=== PATIENT | male | born 1960 | race Caucasian/White ===

== ENCOUNTER 2019-01-21 20:46 | Emergency (ER) | payer MEDICARE, SELFPAY ==
[2019-01-21 20:48] VITALS: BP 153/79; PULSE 57; RESP 16; TEMP 36.7; O2SAT 100; BMI 17.2
[2019-01-21] MEDS: Fluorescein 1 MG STRIP 1 STRIP RIGHT EYE (21:08)
[2019-01-21] MEDS: Tetracaine 0.5% Ophthalmic Bottle 1 DRP RIGHT EYE (21:08)
--- NOTE | 2019-01-21 21:59 | ED.VIS.GEN ---
History of Present Illness Chief Complaint: Eye Problem Informant: Patient Onset: Days Context: Gradual Onset Timing: Intermittent Current Severity: Moderate Maximum Severity: Moderate Narrative: The patient presents to the emergency department foreign body in his right eye. Patient states he was doing some grinding a few weeks ago. He felt like he got metal in his eye and it has been there since. He actually went to [facility] earlier and he states that they did not attempt to get it out. They did not give him follow-up. Presented here in hopes that someone can get it out. He denies any visual change. His tetanus is up-to-date. Prior similar symptoms: No Recent Illness/Hospitalization: No Past Medical History - Allergies and Home Meds Allergies/Adverse Reactions: Allergies No Known Allergies Allergy (Verified 01/21/19 20:47) Primary Care Physician: Jose Hobson MD [STAFF PHYSICIAN] - As soon as possible (The office opens at 8 AM. Call first thing in the morning.) Prior records reviewed: Yes Past Medical History: None Smoking Status: Current every day smoker Review of Systems General: Denies: Chills, Fever, Sweats Eyes: Denies: Visual changes - bilaterally, Diplopia ENT: Denies: Rhinorrhea, Sore throat Cardiovascular: Denies: Chest pain, Palpitations Respiratory: Denies: Dyspnea, Cough, Dyspnea on exertion Gastrointestinal: Denies: Abdominal pain, Nausea, Vomiting, Diarrhea, Melena, Hematochezia Genitourinary: Denies: Dysuria, Hematuria, Frequency Musculoskeletal: Denies: Back pain, Extremity Pain Skin: Denies: Rash, Wounds Neurological: Denies: Headache, Weakness, Numbness Physical Exam Vital Signs/Narrative: Vital Signs Temp Pulse Resp BP Pulse Ox 01/21/19 20:48 98.1 F 57 L 16 153/79 H 100 Inital Vital Signs reviewed: Yes General: Well nourished, Well developed, No Acute Distress Head: Normocephalic, Atraumatic Eyes: Perrl, EOMI ENT: Moist mucous membranes, No rhinorrhea Neck: Supple, Nontender Cardiovascular: Regular rate, Regular rhythm, No murmurs Respiratory: No distress, CTA bilaterally, Chest nontender Abdomen: Soft, Nontender, Nondistended, Normal bowel sounds Back: Nontender, Normal Inspection Extremities: Nontender, No edema Skin: Normal color, No rash Neurological: Alert, Oriented x3, Cranial nerves II-XII grossly intact, Normal Strength, Normal Sensation Psychological: Normal affect, Normal Mood Diagnostic/Tx/Re-eval - Medical Decision Making Tetracaine and fluorescein were instilled into the right eye. Slit-lamp examination was performed. The patient has a very small, punctate foreign body at the 7 o'clock position overlying the iris. There is no evidence of globe injury or Lety sign. There is no rust ring. There is epithelium already over the foreign body. Foreign justa is minute. I was going to attempt to remove it, but we did not have the appropriate eye joseph equipment. As it has been in for this long, I did discuss the patient with ophthalmology and he will be seen in the office tomorrow for an attempt at removal. He is comfortable with this plan of care. Impression 1. Foreign body in the right eye ED Disposition - Plan for ED Patient: Instructions: CORNEAL FOREIGN BODY, Removed Referrals: Jose Hobson MD [STAFF PHYSICIAN] - As soon as possible (The office opens at 8 AM. Call first thing in the morning.)
[2019-01-21 22:17] VITALS: BP 138/79; PULSE 66; RESP 16; O2SAT 98
== END 2019-01-21 22:18 | disposition home or self-care (01) ==
LOC: ED 21:08
PROVIDERS: Emergency Provider Emergency Medicine
DX: T15.91XA Foreign body on external eye, part unspecified, right eye, initial encounter (principal); X58.XXXA Exposure to other specified factors, initial encounter; Y92.9 Unspecified place or not applicable; Y99.9 Unspecified external cause status; F17.200 Nicotine dependence, unspecified, uncomplicated
CPT/HCPCS: 99282

== ENCOUNTER → 2020-05-25 13:31 | Outpatient (CLI) | payer MEDICARE, SELFPAY ==
[2020-05-25 12:34] VITALS: BMI 17.4
[2020-05-25 14:05] LABS: Absolute Lymphocyte Count 2.03 X10^3/uL (0.83-4.51); Absolute Neutrophil Count 5.3 X10^3/uL (2.0-7.7); Basophil# 0.05 X10^3/uL; Basophil% 0.6 % (0-1); Eosinophil# 0.11 X10^3/uL; Eosinophils% 1.4 % (0-5); Hematocrit 42.5 % (40-54); Lymphocyte # 2.03 X10^3/ul (4.0); Lymphocyte % 25.5 % (19-41); Mean Corp Hgb Conc 32.9 g/dL (32-36); Mean Platelet Vol. 8.9 fl (6.2-12.0); Monocyte# 0.44 X10^3/uL; Monocyte% 5.5 % (0-10); NRBC Flagged by Analyzer 0 % (0-5); Neutrophil # 5.29 X10^3/uL (2.7-7.7); Neutrophil % 66.6 % (47-70); Platelet Count 292 K/mm3 (150-450); RBC Distribution Width CV 13.2 % (11.6-14.6); RBC Distribution Width SD 45.4 fl (35.1-43.9); Red Blood Count 4.52 M/mm3 (4.6-6.2)
== END ==
PROVIDERS: Referring Provider Internal Medicine Critical Care Medicine; Visit Provider Internal Medicine Critical Care Medicine
DX: R91.8 Other nonspecific abnormal finding of lung field (principal); F17.210 Nicotine dependence, cigarettes, uncomplicated
CPT/HCPCS: 36415; 85025

== ENCOUNTER → 2020-06-01 12:07 | Outpatient (CLI) | payer MEDICARE, SELFPAY ==
[2020-05-25 12:34] VITALS: BMI 17.4
[2020-06-01 12:15] VITALS: PULSE 74; PULSE 79; PULSE 86; PULSE 88; PULSE 90; PULSE 91; O2SAT 95; O2SAT 96; O2SAT 97; O2SAT 98
--- NOTE | 2020-06-02 07:38 | WT_ITS ---
PSN 6 Minute Walk Test - 6 Minute Walk Test 6 Minute Walk Test: 6 Minute Walk Test PSN:6-Minute Walk Test Start: 06/01/20 12:32 Freq: Status: Active Protocol: RESP.6MINW Document 06/01/20 12:15 [facility] (Rec: 06/01/20 12:36 [facility] [id number]) 6 Minute Walk Test Date Performed 06/01/20 Time Performed 12:15 Height 5 ft 8 in Weight: 112 lb Weight in Pounds 112.[address]: Assistive device used: None Pre-test Oxygen Delivery Method Room Air Pulse Ox (%) 97 Pulse Rate (60-100 beats/min) 74 Dyspnea Dominic Scale (0-10) 0 Exertion Dominic Scale (6-20) 6 1st minute Oxygen Delivery Method Room Air Pulse Ox (%) 98 Pulse Rate (60-100 beats/min) 88 2nd minute Oxygen Delivery Method Room Air Pulse Ox (%) 96 Pulse Rate (60-100 beats/min) 88 3rd minute Oxygen Delivery Method Room Air Pulse Ox (%) 96 Pulse Rate (60-100 beats/min) 86 4th minute Oxygen Delivery Method Room Air Pulse Ox (%) 96 Pulse Rate (60-100 beats/min) 90 5th minute Oxygen Delivery Method Non-Rebreather Pulse Ox (%) 95 Pulse Rate (60-100 beats/min) 90 6th minute Oxygen Delivery Method Room Air Pulse Ox (%) 96 Pulse Rate (60-100 beats/min) 91 Dyspnea Dominic Scale (0-10) 1 Exertion Dominic Scale (6-20) 8 Post-test Oxygen Delivery Method Room Air Pulse Ox (%) 97 Pulse Rate (60-100 beats/min) 79 Full Laps Walked 19 Partial Lap, Number of Tiles Walked 45 Total Distance Walked (ft) 1166 - Interpretation Interpretation: The patient ambulated 1166 feet over the course of 6 minutes beginning on room air without assistive devices or breaks. Pretesting oxygen saturation was noted to be 97% on room air. With ambulation, the melissa oxygen saturation was 95%. There was no significant exertional oxygen desaturation. - Recommendations Recommendations: There is no indication for the use of supplemental oxygen at this time.
== END ==
LOC: PSN 12:08
PROVIDERS: Referring Provider Family Medicine; Visit Provider Family Medicine
DX: R91.8 Other nonspecific abnormal finding of lung field (principal)
CPT/HCPCS: 94618

== ENCOUNTER → 2020-06-07 08:29 | Outpatient (CLI) | payer MEDICARE, SELFPAY ==
[2020-05-25 12:34] VITALS: BMI 17.4
[2020-06-07] VITALS (13 sets, daily range): BP systolic 110–140; BP diastolic 73–100; PULSE 56–76; RESP 12–28; TEMP 36.5; O2SAT 94–100; BMI 17.5
--- NOTE | 2020-06-07 | IMM_PTH ---
PATIENT: MEL KATHLEEN LOC: CT U#:[id number] AGE/SX: 64/M ROOM: RE06/07/[address]: Dr. Bipin Cardenas DO : 1960 BED: DIS: SPEC #: [id number] RECD: 06/08/20 10:10 STATUS: IBIS REQ #: [id number] ANGELINA: 06/07/20 00:[address]: Bipin Cardenas DEPT: IMMUNOHISTOCHEMISTRY RECD BY: Daisy Marin ENTERED: 06/08/20 10:12 SP TYPE: IMMUNO OTHR DR: No Primary Care Phys Tissues: Left upper lobe of lung, NOS Procedures: RCC (add) NAPSIN A (add) CK20 (add) CK5-6 (add) CK7 (add) CK8 (add) HEP PAR (add) TTF1 (add) Pankeratin (initial) P40 (add) PSAP (add) PHYSICIAN & INSTITUTION [place] [id number] SPECIMEN INFORMATION: Tissue Source: ROSEMARY mass Clinical Info: ROSEMARY mass Specimen Number: [id number] CPT code: 47243, 75025 x10 METHODOLOGY: Deparaffinized sections of prefer/formalin-fixed tissue or PAP/DQ stained slides are incubated with monoclonal/polyclonal antibodies/oligonucleotide probes. Localization is made via biotin free immunoperoxidase method. Appropriate controls are performed and reacted as expected. Results on target cell population are indicated in the following table: RESULTS: ANTIBODY / CLONE RESULT AE1-3 (AE1/AE3/PCK26) positive, focal CK7 (OV-TL12/30) positive, focal CK8 (27qkiwQ63) positive CK20 (KS20.8) negative TTF-1 (8G7G3/1) negative Napsin A (Rabbit Polyclonal) negative HepPar (OCh1E5) positive, focal RCC (PN-15) negative PSAP (PASE/4LJ) negative CK5-6 (D5 & 1684) negative P40 (BC28) positive, focal These tests were developed and their performance characteristics determined by [facility]. They may not have been cleared or approved by the U.S. Food and Drug Administration. The FDA has determined that such clearance or approval is not necessary. The above immunohistochemical/dualISH markers are ordered and reviewed by the Pathologist. INTERPRETATION: ROSEMARY mass, CT-guided core biopsy: Poorly differentiated non-small cell carcinoma, favor adenocarcinoma. JENNIE:keon 06/09/2020
--- NOTE | 2020-06-07 08:30 | CT_ITS ---
PROCEDURE: CT GUIDED CORE NEEDLE BIOPSY OF A left apical LUNG LESION INDICATION: Male, 59 years old. LEFT LUNG BIOPSY PHYSICIAN: Dr. JUAN ANTONIO Osman CONSENT: Written informed consent was obtained having explained the risks, benefits and alternatives in detail with the patient who accepted the risks and agreed to proceed. Laboratory review and clinical assessment was performed. CONSCIOUS SEDATION PROTOCOL: The Drugs used were: 1 mg Versed, IV., and 25 mcg Fentanyl, IV. The sedation time was: 19 minutes. Conscious sedation was started at 10:01 AM and terminated at 10:20 AM. The conscious sedation protocol was independently monitored. RADIATION DOSAGE (If Supplied By Facility): CTDIvol = ( 14.3 ) mGy, DLP = ( 218.64 ) mGycm Individualized dose optimization techniques were used for this CT. TECHNIQUE: The patient was placed in the supine position. A noncontrast CT was performed to localize the lesion in the left lung apex . The skin surface was prepped and draped in a sterile fashion. 1% lidocaine was used for local anesthesia. Using CT guidance, a 20-gauge coaxial biopsy device was advanced to the periphery of the lesion. A total of 4 core specimens were obtained. The specimens were placed in a formalin solution. A Bio sentry tract sealant system was utilized. A post procedure CT demonstrated no adverse sequelae or pneumothorax. The patient tolerated the procedure well without adverse event. A negative biopsy does not exclude malignancy. Further imaging or clinical followup based on patient condition and degree of clinical suspicion for malignancy. Suggest rebiopsy, if biopsy results do not match with clinical scenario. CT/Biopsy/Inj or Needle Placement IMPRESSION: 1. CT directed core needle biopsy of the mass in the left lung apex using CT image guidance with image documentation as described. Pathology results are pending. 2. Conscious Sedation protocol utilized with independent monitoring. Electronically Signed: Jaziel Kaur MD at 10:43 EST , Service support ,
[2020-06-07 08:58] LABS: International Normalized Ratio 1.1; Prothrombin Time (Protime)PT. 13.4 SECONDS (11.7-14.9)
--- NOTE | 2020-06-07 10:00 | ASPIGT_PTH ---
PATIENT: MEL KATHLEEN LOC: CT U#:[id number] AGE/SX: 64/M ROOM: RE06/07/[address]: Dr. Bipin Cardenas DO : 1960 BED: DIS: SPEC #: [id number] RECD: 06/07/20 10:30 STATUS: IBIS GENNARO #: [id number] ANGELINA: 06/07/20 10:[address]: Bipin Cardenas DEPT: SURGICAL PATHOLOGY RECD BY: Colleen Figueroa ENTERED: 06/07/20 12:47 SP TYPE: ASP RAD OTHR DR: No Primary Care Phys Tissues: Lung, NOS Procedures: FNA Specimen Adequacy Special Stain Group II Surgery Specimen Level IV Imprint (control) HEADER OPERATION: CT-guided left lung biopsy PRE-OP DIAGNOSIS: ROSEMARY mass TISSUE SUBMITTED: ROSEMARY mass 20-gauge core MICROSCOPIC DIAGNOSIS ROSEMARY mass, CT-guided core biopsy: Poorly differentiated non-small cell carcinoma, favor adenocarcinoma. See comment. SJ:keon 06/08/2020 COMMENT The specimen is evaluated at the time of biopsy by Dr. Samaniego. Immediate Evaluation = Malignant cells present derived from non-small cell carcinoma. Immunohistochemistry ([id number]) supports the above diagnosis. Molecular studies on the tumor can be performed if clinically indicated. Please notify the laboratory if they are needed. Case has been reviewed in consultation with Dr. Taylor who concurs with the above diagnosis. IDC:AM MICROSCOPIC DESCRIPTION Slides are reviewed. GROSS DESCRIPTION Received in fixative is one container labeled with the patient's name and designated ROSEMARY mass, CT-guided core biopsy. The specimen consists of multiple irregular fragments of blackman soft tissue that in aggregate measure 1 x 0.1 x 0.1 cm. The specimen is totally submitted in one cassette. Two touch imprints are prepared at the time of core biopsy. / SJ:keon 06/07/20 TC:[address] [facility]: [id number], [id number] ADDENDUM ADDENDUM ADDENDUM ADDENDUM ADDENDUM ADDENDUM 07/11/2020 10:42 ADDENDUM 07/19/2020 10:13 ADDENDUM 07/11/2020 10:42 ADDENDUM 07/11/2020 10:42 ADDENDUM 07/11/2020 10:42 ADDENDUM 07/11/2020 10:42 PD-L1 (KEYTRUDA) IMMUNOHISTOCHEMICAL ANALYSIS FROM [facility] RESULTS: Tumor proportion score: <1% / Negative Please see complete report in e-chart or EMR ONKOSIT NEXT GENERATION SEQUENCING GENE FUSION PANEL FROM [facility] INTERPRETATION: NEGATIVE: No pathogenic gene fusions detected involving ALK, OSCAR, BRAF, CCND1, EGFR, FGFR1, FGFR2, FGFR3, MET, NRG1, NTRK1, NTRK2, NTRK3, PPARG, RAF1, RET, ROS1 or THADA. RESULTS: Tumor Cellularity: >10% Please see complete report in e-chart or EMR
[2020-06-07] MEDS: Midazolam 2 MG/2 ML Syringe IV (10:01)
[2020-06-07] MEDS: fentaNYL 100 MCG/2 ML Ampul IV (10:03)
--- NOTE | 2020-06-07 10:15 | RAD_ITS ---
STUDY: X-RAY CHEST REASON FOR EXAM: Male, 59 years old. IMMEDIATE POST LUNG BX, LEFT SIDE TECHNIQUE: Immediate post left lung biopsy radiograph. COMPARISON: None. FINDINGS: There is evidence of a 10% left pneumothorax. The patient is asymptomatic. RAD/Chest Insp/Exp 2 View IMPRESSION: 10% left pneumothorax on the immediate post left lung biopsy radiographs. Electronically Signed: Jaziel Kaur MD at 11:09 EST , Service support ,
--- NOTE | 2020-06-07 12:15 | RAD_ITS ---
STUDY: X-RAY CHEST REASON FOR EXAM: Male, 59 years old. 2 HOURS POST LUNG BX TECHNIQUE: AP inspiration and expiration views. COMPARISON: Comparison is made with prior study. FINDINGS: Since prior study, there has been an increase in the left pneumothorax. The patient is asymptomatic. The patient''s oxygenation is at 98% on room air. The patient decided to go home and return if symptoms worsen. . RAD/Chest Insp/Exp 2 View IMPRESSION: Persistent left pneumothorax. The patient is asymptomatic. Oxygenation is at 98% on room air. Electronically Signed: Jaziel Kaur MD at 13:03 EST , Service support ,
== END ==
LOC: CT 08:30
PROVIDERS: Referring Provider Internal Medicine Critical Care Medicine; Visit Provider Internal Medicine Critical Care Medicine
DX: Z01.812 Encounter for preprocedural laboratory examination (principal); C34.12 Malignant neoplasm of upper lobe, left bronchus or lung; R06.02 Shortness of breath; R91.8 Other nonspecific abnormal finding of lung field; F17.210 Nicotine dependence, cigarettes, uncomplicated; Z79.899 Other long term (current) drug therapy
CPT/HCPCS: 32408; 36415; 71046; 77012; 85610; 85730; 88172; 88305; 88313; 88341; 88342; 99155; 99156; J7040; A4216; C2613

== ENCOUNTER → 2020-06-20 15:29 | Outpatient (CLI) | payer MEDICARE, SELFPAY ==
[2020-06-13 10:24] VITALS: BMI 17.5
--- NOTE | 2020-06-20 17:28 | PET_ITS ---
EXAMINATION: FDG PET/CT INDICATIONS: A 59-year-old male with reported history of carcinoma of the lung presenting for initial staging examination. COMPARISON EXAMINATION: CT of the chest, CT-guided left lung biopsy report dated 06/07/20 INDEX LESION SIZE SUV INTERPRETATION Left upper anterior lung-left upper lobe 36.4 x 33.9-mm (frame 199) 18.2 Fulfills quantitative criteria for viable neoplasm Proximal sternum 4.4 Fulfills quantitative criteria for viable neoplasm TECHNIQUE: Following the intravenous administration of 15.31 mCi of F-18 deoxyglucose via the left antecubital fossa, multiplanar image acquisitions of the neck, chest, abdomen and pelvis to level of mid thigh, obtained at one hour post radiopharmaceutical administration contemporaneously interpreted with the current CT of the neck, chest, abdomen and pelvis to level of mid thigh, dated 06/20/[address] of the chest, CT-guided left lung biopsy report dated 06/07/20 reveal: SERUM GLUCOSE LEVEL: 84 mg/dl. HEIGHT: 67 inches. WEIGHT: 112 lbs. FINDINGS: 1. There is an increase in FDG concentration observed in the left upper anterior lung-left upper lobe generating a calculated maximal standard uptake value of 18.2. The maximal axial diameter of the corresponding parenchymal density-mass on review of CT of the chest dated 06/20/20 is 36.4-mm (transverse) x 33.9-mm (AP). 2. An increase in fluorine labeled glucose uptake is observed in the proximal sternum caudal to the sternomanubrial synchondrosis. The calculated maximal standard uptake value is 4.4. Corresponding mixed sclerotic-lytic change is noted in the analogous location on review of CT of the chest dated 06/20/20. 3. Normal physiologic distribution of the radiopharmaceutical is apparent in the hepatic (2.3) and splenic parenchyma, both renal units, bladder and visualized intestinal tract. The visualized portion of the cerebral cortex demonstrate symmetric and preserved glucose metabolism. Prominent tracer concentration is observed in the left ventricular myocardium commensurate with the [place]. Pertinent CT findings are as follows: CHEST: There is atherosclerotic calcification defined in the thoracic aorta without evidence of dilatation-aneurysm formation. Coronary arterial calcification is observed. A left hemithorax pleural effusion reveals no evidence of increased tracer uptake. Calcifications are defined in the right thoracic paravertebral soft tissue musculature without evidence of increased tracer uptake. A calcified density noted in the right mid medial lung reveals no evidence of enhanced tracer concentration. A left pneumothorax is defined. Paraseptal emphysematous change is noted in the bilateral upper-mid lung zones. ABDOMEN AND PELVIS: There is atherosclerotic calcification defined in the abdominal aorta without evidence of dilatation-aneurysm formation. Pelvic arterial calcification is observed. Bilateral subcentimeter inguinal soft tissue densities with fatty hilus are ametabolic. Dystrophic calcification is manifest within the prostate gland without evidence of increased glucose metabolism. Calcified phlebolith formation is observed in the bilateral lower hemipelvis. SKELETAL: Degenerative changes are noted in the cervical, thoracic and lumbar spine without evidence of increased radiopharmaceutical concentration. PET/PET/CT Tumor Base -Thigh Init IMPRESSION: 1. ABNORMAL EXAMINATION INDICATIVE OF MALIGNANT VIABLE NEOPLASM. 2. Increased glucose concentration observed in the left upper anterior lung-left upper lobe fulfills quantitative criteria for viable neoplasm. 3. Enhanced tracer uptake noted in the proximal sternum fulfills quantitative criteria for viable limited osseous metastatic disease. (Nighat et al, Clinical Nuclear Medicine, 29:161, 2004). Electronic Signature Ritesh Chilel D.O. Accurate Quantification of SUVs for this report are calculated using the exclusive [employer]? Technology.??Exclusive [place]. Patent [employer]uquan? Technology (U.S. Patent No. [phone]). Electronically Signed: Ritesh Chilel DO at 21:37 EST Tel , Service support ,
== END ==
LOC: ONC 15:30
PROVIDERS: PCP Family Medicine; Referring Provider Internal Medicine Critical Care Medicine; Visit Provider Internal Medicine Critical Care Medicine
DX: C34.12 Malignant neoplasm of upper lobe, left bronchus or lung (principal)
CPT/HCPCS: 78815; A9552

== ENCOUNTER → 2020-06-22 14:55 | Outpatient (CLI) | payer MEDICARE, SELFPAY ==
[2020-06-13 10:24] VITALS: BMI 17.5
--- NOTE | 2020-06-22 14:58 | MRI_ITS ---
STUDY: MRI BRAIN WITH AND WITHOUT CONTRAST REASON FOR EXAM: Male, 59 years old. Staging for NSCLC TECHNIQUE: Standardized multiplanar fat and water weighted pulse sequences were obtained. IV 10CC DOTAREM was administered for the contrast portion of the examination. COMPARISON: None. FINDINGS: There is mild cerebral atrophy with widening of the extra-axial spaces and ventricular dilatation. There are a limited number of small white matter hyperintensities, distributed throughout the deep white matter tracts of the cerebral hemispheres, consistent with mild chronic white matter ischemic changes. There is no evidence for recent intracranial ischemia or other cause of cytotoxic edema on diffusion weighted imaging (DWI). Normal T2* images of the brain without demonstrated susceptibility artifact. There is no demonstrated hemosiderin stain. Normal bilateral basal ganglia. Normal thalami. There is no extra-axial fluid accumulation. Normal flow voids within the major intracranial circulation suggesting patency by spin echo criteria. Normal venous enhancement. There is no enhancing intra-axial or extra-axial abnormality. Normal sella turcica, pituitary gland, infundibular stalk, optic chiasm and hypothalamus. Normal tectal plate and pineal gland. Normal midbrain, cipriano and medulla. Normal cerebellum. Normal basal cisterns. Normal bilateral temporal bones. Normal bilateral internal auditory canals. No demonstrated orbital abnormality, within the constraints of a routine brain study. Normal visualized paranasal sinuses. Normal calvarium and skull base. Normal visualized soft tissue structures. Normal visualized upper cervical spine. MRI/Brain W/WO Contrast IMPRESSION: Involutional changes of the brain, as described above. No MR evidence metastatic disease. Electronically Signed: Ritesh Craig MD at 16:45 EST Tel , Service support ,
--- NOTE | 2020-06-22 15:00 | RAD_ITS ---
STUDY: X-RAY - ORBITS REASON FOR EXAM: Male, 59 years old. HX METAL TO EYE; PRE MRI TECHNIQUE: 2 view(s) of the orbits were obtained. COMPARISON: None. FINDINGS: Normal bilateral orbits without a metallic orbital foreign body. Normal visualized facial bones. Normal paranasal sinuses. The soft tissue structures are unremarkable. RAD/Orbits for Foreign Body IMPRESSION: No demonstrated metallic orbital foreign body. The patient is cleared for an MRI examination. Electronically Signed: Jaziel Kaur MD at 15:33 EST , Service support ,
[2020-06-22 15:35] LABS: CREATININE FINGERSTICK 1.3 mg/dL (0.70-1.30)
== END ==
PROVIDERS: PCP Family Medicine; Referring Provider Internal Medicine Critical Care Medicine; Visit Provider Internal Medicine Critical Care Medicine
DX: C34.90 Malignant neoplasm of unspecified part of unspecified bronchus or lung (principal)
CPT/HCPCS: 70030; 70553; A9575

== ENCOUNTER → 2020-07-19 10:27 | Outpatient (CLI) | payer MEDICARE, SELFPAY ==
[2020-07-17 14:12] VITALS: BMI 17.4
[2020-07-19 10:55] LABS: Allen Test Positive; Base Excess 1 mmol/L (-2 to +2); Bicarbonate 26.2 mmol/L (22-26); Blood Gas Specimen Type ART; FI02 21; PO2 76 mmHG (75-100); SITE R Radial; SO2 95 % (95-99); Total Carbon Dioxide 28 mmol/L; pH 7.39 (7.35-7.45)
--- NOTE | 2020-07-19 14:30 | PFTCOMP_ITS ---
COMPLETE PULMONARY FUNCTION TEST INTERPRETATION Brief HPI: Patient is a 59 year old male, currently under the care of Dr. Bingham, who presents to [facility] for complete pulmonary function tests secondary to diagnosis of lung cancer. Respiratory therapist reports good effort and reproducible results. Interpretation: Forced expiration spirometry shows a mild large airways obstructive ventilatory defect with an FEV1 of 80% predicted. There is no significant bronchodilator response by strict ATS criteria. Spirograms are of good quality and plateau slowly, indicating slowly emptying areas of the lungs. The respiratory flow volume loop shows decreased expiratory flow rates at high lung volumes consistent with small airways obstruction. Lung volumes by body plethysmography show a normal total lung capacity at 5.8 L, 98% predicted. All other lung volumes are within normal limits. Diffusion capacity by carbon monoxide is normal at 73% predicted. The airway resistance is normal. No previous pulmonary function tests were available for review. An ABG was also obtained showing 7.392/43/75.8/94% indicating normal ventilation with a slightly elevated AA gradient Impression: Irreversible mild large airways obstructive ventilatory defect.
== END ==
LOC: PSN 10:28
PROVIDERS: Referring Provider Internal Medicine Medical Oncology; Visit Provider Internal Medicine Medical Oncology
DX: C34.12 Malignant neoplasm of upper lobe, left bronchus or lung (principal)
CPT/HCPCS: 36600; 82803; 94060; 94726; 94729

== ENCOUNTER → 2020-08-22 13:56 | Outpatient (CLI) | payer MEDICARE, SELFPAY ==
[2020-08-21 13:11] VITALS: BMI 17.3
[2020-08-22 10:07] VITALS: BMI 17.3
--- NOTE | 2020-08-22 13:59 | MRI_ITS ---
STUDY: MRI LEFT BRACHIAL PLEXUS WITH AND WITHOUT CONTRAST REASON FOR EXAM: Male, 59 years old. evaluate for disease invasion into chest wall -- eval plexus and vessel involvement TECHNIQUE: Standardized fat and water weighted pulse sequences were obtained in all 3 orthogonal planes, pre-and post contrast administration. IV 10ml Dotarem was administered for the contrast portion of the examination. COMPARISON: PET CT 06/20/2020. FINDINGS: No demonstrated abnormality in the course of the brachial plexus. There is no demonstrated neural enlargement, neural edema or enhancement of the brachial plexus. 4 x 3.5 x 3 cm enhancing mass in the left pulmonary apex with mild central necrosis. Fluid signal along the superomedial margin without demonstrated solid enhancing component contacts the mediastinum and left subclavian artery. Superiorly, there is mild, partial contact between the enhancing mass and the left subclavian vein, estimated less than 25% encasement. Minimal involvement of the apical pleura is suspected. There is no extension into the chest wall, ribs, or thoracic vertebral bodies. No axillary mass or adenopathy. The visualized shoulder is unremarkable. MRI/Upper Ext No Joint W/WO Cont IMPRESSION: Left apical mass consistent with malignancy, as described above. Electronically Signed: Nasrin Fowler MD at 16:32 EDT Tel , Service support ,
== END ==
LOC: MRI 13:57
PROVIDERS: Referring Provider Student in an Organized Health Care Education/Training Program; Visit Provider Student in an Organized Health Care Education/Training Program
DX: C34.92 Malignant neoplasm of unspecified part of left bronchus or lung (principal)
CPT/HCPCS: 73220; A9575

== ENCOUNTER 2020-08-30 11:55 | Day surgery (SDC) | payer MEDICARE, SELFPAY ==
[2020-08-23 13:23] VITALS: BMI 17.4
[2020-08-30] VITALS (7 sets, daily range): BP systolic 94–125; BP diastolic 64–72; PULSE 55–63; RESP 16–18; TEMP 36.3–36.8; O2SAT 99–100; BMI 17.4
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
[2020-08-30] MEDS: Lactated Ringers 1,000 ML 100 ML IV ×2 (12:15→14:21)
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
[2020-08-30] MEDS: Cefazolin 2 GM in 0.9% Normal Saline 100 ML IV (13:43)
[2020-08-30] MEDS: Bupiv/Epi 0.25% 30 ML Vial (13:55)
--- NOTE | 2020-08-30 14:13 | OP.PCM_ITS ---
Problems Associated Problem List Diagnoses (1) Non-small cell cancer of left lung: (2) Encounter for insertion of venous access port: Report of Operation Date of Procedure: 08/30/20 Pre-Operative Diagnosis: Lung cancer need for vascular access for chemotherapy Post-Operative Diagnosis: Same Surgery/Procedure Performed:: Ultrasound and fluoroscopy right chest port placement utilizing right IJ Description of Procedure: After obtaining informed consent patient was brought back to the operating room MAC anesthesia was induced and the right chest and neck were prepped in normal sterile fashion. Ultrasound was used to evaluate both IJs and the right IJ was selected. Next, using a needle, the right IJ was accessed and a guidewire was passed on into the superior vena cava under fl uoroscopy guidance. A small incision was made over the puncture site and the dilator introducer was placed over the guidewire. Next this was capped and the pocket was made for the port. 1% lidocaine with epinephrine was injected in the proposed port site. An incision was made with scalpel. Electrocautery was used to make a pocket under the skin and subcutaneous tissue. Hemostasis was obtaine d. Next, the catheter was tunneled up to the neck incision site and placed through the introducer. The peel-away introducer was removed and the position of the catheter was confirmed on fluoroscopy. Next, the catheter was trimmed and attached to the port with the locking device. Interrupted 2-0 Vicryl sutures were used to anchor the port to the chest wall and then the port was placed inside the pocket. The pocket was then flushed with saline and the port irrigated with saline. There was good blood return and the port flushed easily. Next, heparin was injected into the port. The skin was closed with subcutaneous interrupted 3-0 Vicryl sutures. A single 3-0 Vicryl sutures placed under the skin at the neck incision site. Steri-Strips were placed as well as op sites. Patient tolerated procedure well, was taken to PACU in stable condition. Chest x-ray will be obtained. Grafts/Implants Used: 8 [place] PowerPort Admit VTE Documentation VTE Mechan Device Prophylaxis: SCD's
--- NOTE | 2020-08-30 14:14 | EX.PCM.DISCH ---
Discharge Instructions Procedure Port-A-Cath Diet Discharge Diet: Light diet - advance as tolerated (Pain medication may cause nausea. You should typically eat light foods as you take your pain medication.) Activity Discharge Activity: Return to Normal Activity and May Shower (with your bandage in place in 1-2 days after surgery. ) Dressing / Incision Call your doctor if your incision/area has: Continuous Slow Oozing, Sudden Increased Bleeding, Increased Pain/ Swelling, Increased Redness and Swelling at the incision site Call your doctor if you observe: Fever of 101 or Higher Remove Dressing in: 2 days Follow Up Care Please Follow Up With: Kevin Mendez MD When: as needed. Call [phone] with any questions or concerns Test Results: Test results from this visit will be discussed in further detail at your follow-up appointment, if applicable. Discharge Plan Admission Attending Provider: Kevin Mendez Primary Care Provider: Macy Sherwood Discharge Orders/Prescriptions Prescriptions: No Action oxycodone 5 mg capsule 5 mg PO BID PRN (Reason: Pain) RF: 0 lidocaine-prilocaine 2.5-2.5 % cream 1 applic topical ONCE PRN (Reason: Port access) 30 Days Qty: 30 RF: 2 ondansetron 8 mg tablet,disintegrating 8 mg PO Q8H PRN (Reason: nausea and vomiting) Qty: 30 RF: 2 trazodone 100 MG tablet 300 mg PO QHS RF: 0 Referrals / Follow Up: Macy Sherwood DO [Primary Care Provider] - Disposition Disposition (needs filled in before D/C Order can be placed): Home, self care
--- NOTE | 2020-08-30 14:15 | RAD_ITS ---
STUDY: X-RAY CHEST REASON FOR EXAM: Male, 59 years old. Line placement -- in pacu TECHNIQUE: Single AP portable view of the chest. COMPARISON: Comparison is made with prior study dated 06/07/2020. FINDINGS: A right-sided portacatheter is in place. The tip is at the junction of the superior vena cava and right atrium. EKG electrodes are seen. There is hyperinflation of the lungs consistent with chronic obstructive lung disease (COPD). Surgical clips are seen in the left suprahilar region. Normal size heart. Normal mediastinum and marcello. Normal visualized pulmonary arteries. Normal visualized aortic arch and descending thoracic aorta. There is a dextroscoliosis of the thoracic spine. Normal visualized ribs, clavicles, and shoulders. There is no demonstrated abnormality of the visualized soft tissue structures of the upper abdomen. RAD/CXR for Line Placement IMPRESSION: The tip of the right ayush catheter is at the junction of the superior vena cava and right atrium. Surgical clips are seen in the left suprahilar region. Electronically Signed: Jaziel Kaur MD at 14:35 EDT , Service support ,
== END 2020-08-30 15:10 | disposition home or self-care (01) ==
LOC: SDC 11:55 → AC 11:56
PROVIDERS: PCP Family Medicine; Referring Provider Surgery; Visit Provider Surgery
PROC: (CPT 36561; principal; 2020-08-30 13:15)
DX: Z45.2 Encounter for adjustment and management of vascular access device (principal); C34.92 Malignant neoplasm of unspecified part of left bronchus or lung; C79.51 Secondary malignant neoplasm of bone; Z20.822 Contact with and (suspected) exposure to COVID-19; J44.9 Chronic obstructive pulmonary disease, unspecified; G62.9 Polyneuropathy, unspecified; G47.00 Insomnia, unspecified; F17.210 Nicotine dependence, cigarettes, uncomplicated; Z79.899 Other long term (current) drug therapy
CPT/HCPCS: 36561; 71045; 77001; 77293; 77300; 77301; 77338; 87426; C9803; J7120; C1788

== ENCOUNTER → 2020-11-16 12:40 | Outpatient (CLI) | payer MEDICARE, SELFPAY ==
[2020-10-16 08:27] VITALS: BMI 18.1
--- NOTE | 2020-11-16 12:44 | CT_ITS ---
STUDY: CT CHEST WITH CONTRAST REASON FOR EXAM: Male, 59 years old. ASSESS TREATMENT RESPONCE RADIATION DOSAGE (If Supplied By Facility): CTDIvol = ( 9.16 ) mGy, DLP = ( 194.85 ) mGycm TECHNIQUE: Transaxial imaging was performed following intravenous administration of IV 100mL Isovue-370. Individualized dose optimization techniques were used for this CT. COMPARISON: 08/23/2020 FINDINGS: Right internal jugular chest port. Mild emphysematous changes with subpleural blebs. Some bilateral apical scarring. Interval decrease in the size of the mass in the apex of the left lung from 3.4 x 3.8 cm to 1.8 x 1.8 cm consistent with improved primary bronchogenic carcinoma. No change in the tubular structure in the anterior aspect of the superior segment of the right lower lobe which may represent a pulmonary venous varix. No other pulmonary nodule or mass. There is no demonstrated pleural abnormality. Normal heart and pericardium. Normal mediastinum. Normal hilar regions. Normal enhanced pulmonary arteries. Normal aorta arch and descending thoracic aorta. Healing fracture of the superior aspect of the sternum. There is no demonstrated abnormality of the visualized upper abdomen. CT/Chest WITH Contrast IMPRESSION: Markedly improved primary bronchogenic carcinoma in the apex of the left lung. No CT evidence metastatic disease in the chest. Electronically Signed: Ritesh Craig MD at 9:24 EDT Tel , Service support ,
[2020-11-16] MEDS: 0.9% Saline Lock 10 ML Syringe IV (13:00)
[2020-11-16] MEDS: 0.9 % NaCl (Sterile) Posiflush 10 mL IV (13:00)
== END ==
LOC: CT 12:40
PROVIDERS: PCP Family Medicine; Referring Provider Internal Medicine Medical Oncology; Visit Provider Internal Medicine Medical Oncology
DX: C34.92 Malignant neoplasm of unspecified part of left bronchus or lung (principal)
CPT/HCPCS: 71260

== ENCOUNTER → 2020-12-26 12:27 | Outpatient (CLI) | payer MEDICARE, SELFPAY ==
--- NOTE | 2020-12-26 12:29 | CT_ITS ---
STUDY: CTA CHEST REASON FOR EXAM: Male, 60 years old. Suspect PE, hemoptysis, RADIATION DOSAGE (If Supplied By Facility): CTDIvol = ( 3.38 ) mGy, DLP = ( 126.08 ) mGycm TECHNIQUE: The examination was performed with the intravenous administration of IV 100mL Isovue-370. Post-processing of the angiographic images was performed, with multiplanar reformation and 3D reconstruction. Individualized dose optimization techniques were used for this CT. COMPARISON: Comparison is made with prior study dated 11/16/2020. FINDINGS: Normal enhancement of the main pulmonary artery and right and left pulmonary arteries. Normal enhancement of the bilateral peripheral pulmonary arteries. There is no demonstrated pulmonary embolism. Normal thoracic aorta and visualized great vessels. There is no demonstrated aortic dissection. Normal heart and pericardium. Normal mediastinum. Normal hilar regions. Normal visualized trachea and bronchi. Hyperinflation. Stable bilateral apical scarring. Stable bullous changes in both lungs more pronounced in the upper lobes. There is a persistent 2 cm x 1.5 cm mass in the medial apical region of the left upper lobe. This has improved as compared to prior study. Stable mild degree of bronchiectasis in the medial aspect of the left upper lobe most likely secondary to prior radiation treatment and post radiation fibrosis. Normal pleura. Normal chest wall structures. The mineralization of the thoracic vertebrae. Healed fracture of the proximal superior aspect of the sternum. Normal visualized upper abdomen. CT/CTA Chest W/WO Contrast IMPRESSION: No evidence of pulmonary embolism. Interval decrease in size of the medial left apical mass. Stable underlying emphysematous changes and scarring. Electronically Signed: Jaziel Kaur MD at 12:58 EDT , Service support ,
== END ==
LOC: CT 12:28
PROVIDERS: PCP Family Medicine; Referring Provider Nurse Practitioner Family; Visit Provider Nurse Practitioner Family
DX: R04.2 Hemoptysis (principal); R09.89 Other specified symptoms and signs involving the circulatory and respiratory systems; E86.0 Dehydration; C34.92 Malignant neoplasm of unspecified part of left bronchus or lung; E87.6 Hypokalemia
CPT/HCPCS: 36591; 71275; 80053; 83615; 85025; 96365; 96367; 96368; Q9967; A4216; J2405; J3490